=== PATIENT | female | born 1940 | race Caucasian/White ===

== ENCOUNTER 2016-05-16 21:51 | Inpatient (IN) ==
[2016-05-16] MEDS ORDERED: DUONEB NEB STA (21:59)
[2016-05-16 22:17] LABS: ABG BASE EXCESS -5 (-2.0-2.0); ABG HCO3 18.1 (22.0-26.0); ABG PCO2 22.9 mmHg (35-45); ABG PH 7.504 (7.35-7.45); ABG TCO2 19 (22.0-28.0)
--- NOTE | 2016-05-16 22:25 | ED.PDOC ---
General ED Provider: Dr. PEPITO PERALTA Chief Complaint: Shortness of Air Stated Complaint: Patient is a 75 year old female who comes to the ER with shortness of breath for 2 days . Call the office and got a prescription for Augmentin and has taken a total of 2 dose but is not better. comes it feeling very ill short of breath and coughing. Time Seen by Physician: 22:00 Mode of Arrival: Wheelchair Information Source: Patient Exam Limitations: No limitations Primary Care Provider: KAMILA DOUGLAS Nursing and Triage Documentation Reviewed and Agree: Yes Respiratory Complaint Exam - Respiratory Complaint/Exam Onset/Duration: 2 days Symptoms Are: Still present Timing: Constant Initial Severity: Moderate Current Severity: Severe Location: Chest Character: Reports: Non-productive cough Aggravating: Reports: URI, Weather Alleviating: Reports: None Associated Signs and Symptoms: Reports: Dyspnea, Fever, Chills History of Healthcare-Acquired Pneumonia: No Related Surgical History: Reports: None Pulmonary Embolism Risk Factors: None Cardiac Risk Factors: Reports: Hypertension. Denies: Prior CT, CAD, Smoking, Elevated lipids, Diabetes, CHF, Family History Pseudomonas Risk Factors: Reports: None Tuberculosis Risk Factors: Reports: None Status Asthmaticus Risk Factors: Reports: None Home Oxygen Use: No Recent Stress Test: No Recent Echo/LV Function: No Current Antibiotic Use: Yes (Augmentin ) Current Asthma Medication Use: No Respiratory Distress: Severe Inadequate Respiratory Effort: No Dysphagia Present: No Stridor Present: No JVD Present: No Accessory Muscle Use: No Retractions: Not Present Diminished Breath Sounds: Yes (bilaterally ) Sinus Tenderness: None Grunting Respirations: No Kussmaul Respirations: No Differential Diagnoses: Asthma, CHF, Pneumonia, Bronchitis, URI, Influenza, Lower Resp. Infection Non-Traumatic Chest Pain Syncope: EKG Performed Review of Systems - Review Of Systems Constitutional: Reports: Chills, Diaphoresis, Fever, Loss of appetite Eyes: Reports: No symptoms Ears, Nose, Mouth, Throat: Reports: No symptoms Respiratory: Reports: Cough, Short of air Cardiac: Reports: No symptoms GI: Reports: No symptoms, Abdomen distended : Reports: No symptoms Musculoskeletal: Reports: No symptoms Skin: Reports: No symptoms Neurological: Reports: Anxiety All Other Systems: Reviewed and Negative Past Medical History - Past Medical History Endocrine: Reports: None Cardiovascular: Reports: Hypertension Respiratory: Reports: None Hematological: Reports: None Gastrointestinal: Reports: None Genitourinary: Reports: None Neuro/Psych: Reports: None Musculoskeletal: Reports: None Cancer: Reports: None Last Menstrual Period: UNKNOWN - Surgical History General Surgical History: Reports: None - Family History Family History: Reports: None - Social History Smoking Status: Former smoker Hx Substance Use: No Alcohol Screening: None - Immunizations Tetanus Shot up to Date: No Physical Exam - Physical Exam Appearance: Ill-appearing Ill-appearing: Severe Eyes: ZANE, EOMI, Conjunctiva clear Neck: Supple Respiratory: Breath sounds diminished Cardiovascular: Pulses normal, Tachycardia GI/: Soft, Nontender, No masses, Bowel sounds normal Musculoskeletal: ROM intact, No edema Skin: Warm, Dry, Normal color Neurological: Sensation intact, Motor intact Psychiatric: Anxious Interpretation - Radiology Interpretation Radiology Interpretation By: Radiologist Radiology Results: Negative Exam Interpreted: CXR - Assistant Maintenance Manager Rate: Tachy Rhythm: Sinus Ectopy: None - EKG Interpretation Time of EKG #1: 22:26 Rate: Tachy Rhythm: Sinus [place]: Left ST Segment: Normal Interpretation: Old anterior infact Re-Evaluation - Re-Evaluation Time of Re-Evaluation: 23:51 Status: Improved (feels better less short of breath ) Vital Signs Stable: Yes ( blood pressure 99/64) Pain Level: none Lungs: Other (moving air better) Skin: Warm and Dry Neuro: Alert and Oriented X3 Physician Notification - Case Discussed Physician Notified: Dr. Bob Time of Notification: 23:50 (ok to admit ) Critical Care Note - Critical Care Note Total Time (mins): 30 Comments: Partly Compensated Respiratory Alkalosis Course - Course Hematology/Chemistry: 05/16/16 22:00 05/16/16 22:00 Orders, Labs, Meds: Lab Review 05/16/16 05/16/16 05/16/16 21:59 22:00 23:10 WBC 13.82 H RBC 3.87 L Hgb 10.6 L Hct 32.5 L MCV 84.0 MCH 27.4 MCHC 32.6 RDW Coeff of Shahram 16.1 H Plt Count 457 H Immature Gran % (Auto) 0.7 Neut % (Auto) 62.4 Lymph % (Auto) 25.5 [place] % (Auto) 9.0 Eos % (Auto) 2.1 Baso % (Auto) 0.3 Immature Gran # (Auto) 0.1 Neut # 8.6 H Lymph # 3.5 H [place] # 1.2 Eos # 0.3 Baso # 0.0 D-Dimer 3.91 Puncture Site Lb O2 Saturation 96.0 ABG pH 7.504 H* ABG pCO2 22.9 L ABG pO2 89.0 ABG HCO3 18.1 L ABG Total CO2 19 L ABG Base Excess -5 L Dima Test + FiO2 % 21.0 Sodium 134 L Potassium 4.0 Chloride 100 Carbon Dioxide 16 L Anion Gap 22.0 BUN 21 H Creatinine 1.30 Estimated GFR (MDRD) 40.00 BUN/Creatinine Ratio 16.15 Glucose 236 H Calcium 9.7 Total Bilirubin 0.23 AST 45 H ALT 37 Alkaline Phosphatase 76 Total Creatine Kinase 69 Troponin I 0.3900 B-Natriuretic Peptide 754 H Total Protein 7.0 Albumin 3.1 L Globulin 3.9 Albumin/Globulin Ratio 0.79 Influenza A (Rapid) Negative Influenza B (Rapid) Negative Orders Category Date Time Status ADMIT PATIENT INPATIENT .TO SCU (MONITORED BED) ADMISSION 05/16/16 23:38 Ordered ABG DRAW REQUEST Stat CARDIO 05/16/16 22:00 Completed ECHOCARDIOGRAM 2D-M MODE Routine CARDIO 05/16/16 23:38 Ordered EKG-(ED ONLY) Stat CARDIO 05/16/16 21:59 Completed NEBULIZER TREATMENT Routine CARDIO 05/16/16 23:43 Ordered NEBULIZER TREATMENT Stat CARDIO 05/16/16 22:00 Completed OXYGEN Routine CARDIO 05/16/16 23:38 Ordered ACTIVITY .Up ad Sunshine CARE 05/16/16 23:40 Ordered INTAKE & OUTPUT Q8HR CARE 05/16/16 23:38 Ordered TELEMETRY MONITORING TELE CARE 05/16/16 23:40 Ordered VITAL SIGNS Q4HR CARE 05/16/16 23:40 Ordered REGULAR DIET DIETARY 05/16/16 Breakfast Ordered ED APPLY O2 .ONCE EMERGENCY 05/16/16 21:59 Active ED PRINT PROJECT MANAGER APPLIED .ONCE EMERGENCY 05/16/16 21:59 Active ED IV/MEDIPORT/POWERPORT .ONCE EMERGENCY 05/16/16 21:59 Active ABG Stat LAB 05/16/16 21:59 Completed B-TYPE NATRIURETIC PEPTIDE Stat LAB 05/16/16 22:00 Completed BASIC METABOLIC PANEL DAILY@0600 LAB 05/17/16 06:00 Ordered BASIC METABOLIC PANEL DAILY@0600 LAB 05/18/16 06:00 Ordered BASIC METABOLIC PANEL DAILY@0600 LAB 05/19/16 06:00 Ordered BASIC METABOLIC PANEL DAILY@0600 LAB 05/20/16 06:00 Ordered BASIC METABOLIC PANEL DAILY@0600 LAB 05/21/16 06:00 Ordered BASIC METABOLIC PANEL DAILY@0600 LAB 05/22/16 06:00 Ordered BASIC METABOLIC PANEL DAILY@0600 LAB 05/23/16 06:00 Ordered BASIC METABOLIC PANEL DAILY@0600 LAB 05/24/16 06:00 Ordered BASIC METABOLIC PANEL DAILY@0600 LAB 05/25/16 06:00 Ordered BASIC METABOLIC PANEL DAILY@0600 LAB 05/26/16 06:00 Ordered BASIC METABOLIC PANEL DAILY@0600 LAB 05/27/16 06:00 Ordered BASIC METABOLIC PANEL DAILY@0600 LAB 05/28/16 06:00 Ordered BASIC METABOLIC PANEL DAILY@0600 LAB 05/29/16 06:00 Ordered BASIC METABOLIC PANEL DAILY@0600 LAB 05/30/16 06:00 Ordered BASIC METABOLIC PANEL DAILY@0600 LAB 05/31/16 06:00 Ordered BASIC METABOLIC PANEL DAILY@0600 LAB 06/01/16 06:00 Ordered BASIC METABOLIC PANEL DAILY@0600 LAB 06/02/16 06:00 Ordered BASIC METABOLIC PANEL DAILY@0600 LAB 06/03/16 06:00 Ordered BASIC METABOLIC PANEL DAILY@0600 LAB 06/04/16 06:00 Ordered BASIC METABOLIC PANEL DAILY@0600 LAB 06/05/16 06:00 Ordered BLOOD CULTURE Stat LAB 05/16/16 22:20 Received CBC W/ AUTO DIFF DAILY@0600 LAB 05/17/16 06:00 Ordered CBC W/ AUTO DIFF DAILY@0600 LAB 05/18/16 06:00 Ordered CBC W/ AUTO DIFF DAILY@0600 LAB 05/19/16 06:00 Ordered CBC W/ AUTO DIFF DAILY@0600 LAB 05/20/16 06:00 Ordered CBC W/ AUTO DIFF DAILY@0600 LAB 05/21/16 06:00 Ordered CBC W/ AUTO DIFF DAILY@0600 LAB 05/22/16 06:00 Ordered CBC W/ AUTO DIFF DAILY@0600 LAB 05/23/16 06:00 Ordered CBC W/ AUTO DIFF DAILY@0600 LAB 05/24/16 06:00 Ordered CBC W/ AUTO DIFF DAILY@0600 LAB 05/25/16 06:00 Ordered CBC W/ AUTO DIFF DAILY@0600 LAB 05/26/16 06:00 Ordered CBC W/ AUTO DIFF DAILY@0600 LAB 05/27/16 06:00 Ordered CBC W/ AUTO DIFF DAILY@0600 LAB 05/28/16 06:00 Ordered CBC W/ AUTO DIFF DAILY@0600 LAB 05/29/16 06:00 Ordered CBC W/ AUTO DIFF DAILY@0600 LAB 05/30/16 06:00 Ordered CBC W/ AUTO DIFF DAILY@0600 LAB 05/31/16 06:00 Ordered CBC W/ AUTO DIFF DAILY@0600 LAB 06/01/16 06:00 Ordered CBC W/ AUTO DIFF DAILY@0600 LAB 06/02/16 06:00 Ordered CBC W/ AUTO DIFF DAILY@0600 LAB 06/03/16 06:00 Ordered CBC W/ AUTO DIFF DAILY@0600 LAB 06/04/16 06:00 Ordered CBC W/ AUTO DIFF DAILY@0600 LAB 06/05/16 06:00 Ordered CBC W/ AUTO DIFF Stat LAB 05/16/16 22:00 Completed COMPREHENSIVE METABOLIC PANEL Stat LAB 05/16/16 22:00 Completed CREATINE KINASE Q8H LAB 05/17/16 05:45 Ordered CREATINE KINASE Q8H LAB 05/17/16 13:45 Ordered CREATINE KINASE Stat LAB 05/16/16 22:00 Completed D-DIMER Stat LAB 05/16/16 22:00 Received FLU A & B RAPID TEST [RAPID FLU A/B] Stat LAB 05/16/16 23:10 Completed MOLECULAR GROUP A STREP Stat LAB 05/16/16 23:10 Results STREP SCREEN Stat LAB 05/16/16 23:32 Uncollected TROPONIN I Q8H LAB 05/17/16 05:45 Ordered TROPONIN I Q8H LAB 05/17/16 13:45 Ordered TROPONIN I Stat LAB 05/16/16 22:00 Completed 0.9 % Sodium Chloride [Saline Flush] MEDS 05/16/16 21:59 Ordered 1 syr IVF PRN PRN Acetaminophen [Tylenol] MEDS 05/16/16 23:38 Ordered 650 mg PO Q4H PRN Azithromycin Inj [Zithromax] 500 mg MEDS 05/16/16 22:48 Active 0.9 % Sodium Chloride [Sodium Chloride] 250 ml IV ONCE Ceftriaxone Sodium [Rocephin] 1 gm MEDS 05/16/16 23:45 Ordered 0.9 % Sodium Chloride [Sodium Chloride] 50 ml IV DAILY Enoxaparin Sodium [Lovenox] MEDS 05/17/16 09:00 Ordered 40 mg SUBCUT DAILY Ipratropium/Albuterol Neb [Duoneb] MEDS 05/16/16 21:59 Discontinued 1 vial NEB ONCE STA Ipratropium/Albuterol Neb [Duoneb] MEDS 05/16/16 23:38 Ordered 1 vial NEB RTQ2H PRN Ipratropium/Albuterol Neb [Duoneb] MEDS 05/17/16 06:00 Ordered 1 vial NEB RTQID Methylprednisolone Sod Succ/Pf [Solu-Medrol 125 mg] MEDS 05/16/16 22:31 Discontinued 125 mg IVP ONCE STA Ondansetron HCl/Pf [Zofran 4 mg/2 ml] MEDS 05/16/16 23:38 Ordered 4 mg IVP Q6H PRN Sodium Chloride 0.9% [Sodium Chloride] 1,000 ml MEDS 05/16/16 23:45 Ordered IV 125 mls/hr Sodium Chloride 0.9% [Sodium Chloride] 1,000 ml MEDS 05/16/16 22:29 Active IV BOLUS RESUSCITATION STATUS Routine OTHERS 05/16/16 23:38 Ordered CHEST, 1V AP ONLY Stat RADS 05/16/16 21:59 Completed Medications Generic Name Dose Route Start Last Admin Trade Name Freq PRN Reason Stop Dose Admin Acetaminophen 650 mg 05/16/16 23:38 Tylenol PO Q4H PRN Fever >101 Albuterol/Ipratropium 1 vial 05/17/16 06:00 Duoneb NEB RTQID REGINA Albuterol/Ipratropium 1 vial 05/16/16 23:38 Duoneb NEB RTQ2H PRN Wheezing Azithromycin 250 mg 05/17/16 09:00 Zithromax PO DAILY REGINA Enoxaparin Sodium 40 mg 05/17/16 09:00 Lovenox SUBCUT DAILY REGINA Sodium Chloride 1,000 mls @ 125 mls/hr 05/16/16 22:29 05/16/16 22:31 Sodium Chloride IV 05/17/16 06:28 125 mls/hr BOLUS STA Administration Azithromycin 500 mg/ Sodium 250 mls @ 125 mls/hr 05/16/16 22:48 05/16/16 23: 25 Chloride IV 05/17/16 00:47 125 mls/hr ONCE STA Administration Ceftriaxone Sodium 1 gm/ 50 mls @ 75 mls/hr 05/16/16 23:45 Sodium Chloride IV DAILY REGINA Sodium Chloride 1,000 mls @ 125 mls/hr 05/16/16 23:45 Sodium Chloride IV .Q8H REGINA Ondansetron HCl 4 mg 05/16/16 23:38 Zofran 4 Mg/2 Ml IVP Q6H PRN Nausea / Vomiting Sodium Chloride 1 syr 05/16/16 21:59 05/16/16 22:40 Saline Flush IVF 1 syr PRN PRN Administration To flush IV Discontinued Medications Generic Name Dose Route Start Last Admin Trade Name Freq PRN Reason Stop Dose Admin Albuterol/Ipratropium 1 vial 05/16/16 21:59 05/16/16 22:26 Duoneb NEB 05/16/16 22:00 1 vial ONCE STA Administration Methylprednisolone Sodium Succinate 125 mg 05/16/16 22:31 05/16/16 22:38 Solu-Medrol 125 Mg IVP 05/16/16 22:32 125 mg ONCE STA Administration Vital Signs: Temp Pulse Resp BP Pulse Ox 05/16/16 21:52 97.2 F L 116 H 32 H 78/48 L 84 L Departure - Departure Time of Disposition: 23:55 Disposition: ADMITTED INPATIENT Discharge Problem: Acute bronchitis Qualifiers: Bronchitis organism: other organism Qualifier Code: (J20.8) Acute bronchitis due to other specified organisms Condition: Fair Pt referred to PMD for follow-up: No (Admitted ) Allergies/Adverse Reactions: Allergies No Known Drug Allergies Adverse Reaction (Verified 05/16/16 22:07) Home Medications: Ambulatory Orders Amoxicillin/Potassium Clav [Augmentin 875-125 mg Tab] 1 tab PO Q12HR 05/16/16 Losartan/Hydrochlorothiazide [Losartan-Hctz 100-25 mg Tab] 1 tab PO DAILY
[2016-05-16 22:26] VITALS: BMI 30.2
[2016-05-16 22:27] LABS: BASOPHILS % (AUTO) 0.3 % (0.0-3.0); EOSINOPHILS # (AUTO) 0.3 K/ul (0.0-0.7); EOSINOPHILS % (AUTO) 2.1 % (0.0-7.0); HEMATOCRIT 32.5 % (37.0-47.0); HEMOGLOBIN 10.6 g/dl (12.0-16.0); IMMATURE GRANULOCYTE % (AUTO) 0.7 % (0.0-5.0); LYMPHOCYTES # (AUTO) 3.5 K/uL (0.60-3.4); LYMPHOCYTES % (AUTO) 25.5 (10.0-50.0); MEAN CORPUSCULAR HEMOGLOBIN 27.4 pg (27.0-31.0); MEAN CORPUSCULAR HGB CONC 32.6 (31.8-35.4); MONOCYTES # (AUTO) 1.2 K/uL (0.4-2.0); NEUTROPHILS # (AUTO) 8.6 K/ul (2.0-6.9); NEUTROPHILS % (AUTO) 62.4; PLATELET COUNT 457 10^3/uL (140-440); RED BLOOD COUNT 3.87 10^6/ul (4.20-5.40); WHITE BLOOD COUNT 13.82 K/ul (4.6-10.2)
[2016-05-16] MEDS ORDERED: SODIUM CHLORIDE 1,000 ML IV STA (22:29)
--- NOTE | 2016-05-16 22:29 | DI ---
EXAM: Chest, single view, 05/16/2016 HISTORY: Shortness of a air COMPARISON: 10/29/2014 FINDINGS / IMPRESSION: Cardiomediastinal contours appear stable. Small hiatal hernia. Elevation o f the right diaphragm. There is no focal pulmonary consolidation. No pleural effusion or pneumothorax..
[2016-05-16] MEDS ORDERED: SOLU-MEDROL 125 MG IVP STA (22:31)
[2016-05-16 22:48] LABS: ALBUMIN 3.1 g/dL (3.4-5.0); ALBUMIN/GLOBULIN RATIO 0.79; BILIRUBIN,TOTAL 0.23 mg/dL (0.00-1.20); BUN/CREATININE RATIO 16.15; CALCIUM 9.7 mg/dL (8.2-10.2); CREATININE 1.3 mg/dL (0.60-1.30); TROPONIN I 0.39 ng/ml (0.0000-0.4000)
[2016-05-16] MEDS ORDERED: ZITHROMAX 500 MG in SODIUM CHLORIDE 250 ML IV STA (22:48)
[2016-05-16 23:29] LABS: FLU INTERNAL QC INTERNAL QC VALID; RAPID FLU A NEGATIVE (NEGATIVE); RAPID FLU B NEGATIVE (NEGATIVE)
[2016-05-16] MEDS ORDERED: TYLENOL PO PRN (23:38)
[2016-05-16] MEDS ORDERED: ZOFRAN 4 MG/2 ML IVP PRN (23:38)
[2016-05-16] MEDS ORDERED: DUONEB NEB PRN (23:38)
[2016-05-16] MEDS ORDERED: ROCEPHIN 1 GM in SODIUM CHLORIDE 50 ML IV SCH (23:45)
[2016-05-16] MEDS ORDERED: SODIUM CHLORIDE 1,000 ML IV SCH (23:45)
[2016-05-17] MEDS ORDERED: SODIUM CHLORIDE 500 ML IV STA (00:55)
[2016-05-17] MEDS ORDERED: ATIVAN PO PRN (00:58)
[2016-05-17] MEDS ORDERED: ROCEPHIN ONE (02:07)
[2016-05-17] MEDS ORDERED: SOLU-MEDROL 125 MG IVP SCH (05:00)
[2016-05-17] MEDS ORDERED: DUONEB NEB SCH (06:00)
[2016-05-17 06:18] VITALS: TEMP 96.8
[2016-05-17 06:25] LABS: BASOPHILS % (AUTO) 0.2 % (0.0-3.0); EOSINOPHILS % (AUTO) 0.1 % (0.0-7.0); HEMATOCRIT 33.3 % (37.0-47.0); HEMOGLOBIN 10.5 g/dl (12.0-16.0); IMMATURE GRANULOCYTE % (AUTO) 1.4 % (0.0-5.0); LYMPHOCYTES # (AUTO) 1.2 K/uL (0.60-3.4); MEAN CORPUSCULAR HEMOGLOBIN 26.9 pg (27.0-31.0); MEAN CORPUSCULAR HGB CONC 31.5 (31.8-35.4); MEAN CORPUSCULAR VOLUME 85.4 fl (81.0-99.0); MONOCYTES # (AUTO) 0.4 K/uL (0.4-2.0); MONOCYTES % (AUTO) 2.9 (0-10); NEUTROPHILS # (AUTO) 10.6 K/ul (2.0-6.9); NEUTROPHILS % (AUTO) 85.4; PLATELET COUNT 370 10^3/uL (140-440); WHITE BLOOD COUNT 12.39 K/ul (4.6-10.2)
[2016-05-17 06:40] LABS: ANION GAP 21.6; BUN/CREATININE RATIO 15.46; CREATININE 1.81 mg/dL (0.60-1.30); POTASSIUM 4.6 mmol/L (3.5-5.10)
[2016-05-17 06:49] LABS: TROPONIN I 0.376 ng/ml (0.0000-0.4000)
[2016-05-17] MEDS ORDERED: SUBLIMAZE IVP STA (08:55)
[2016-05-17] MEDS ORDERED: VERSED IVP STA (08:55)
[2016-05-17] MEDS ORDERED: ANECTINE IVP STA (08:56)
[2016-05-17] MEDS ORDERED: DIPRIVAN 20 ML VIAL IVP STA (08:56)
[2016-05-17] MEDS ORDERED: LOVENOX SUBCUT SCH ×2 (09:00)
[2016-05-17] MEDS: PHENYLEPHRINE IVP STA ×2 (09:08→12:35)
[2016-05-17] MEDS ORDERED: DOPAMINE 400 MG in PREMIX 250 ML D5W 1 BAG IV SCH (09:10)
[2016-05-17] MEDS ORDERED: PHENYLEPHRINE IVP STA ×2 (09:10→10:26)
[2016-05-17] MEDS: PHENYLEPHRINE IVP ONE ×2 (09:10→12:36)
[2016-05-17] MEDS ORDERED: NORCURON IVP STA (09:25)
[2016-05-17] MEDS ORDERED: DIPRIVAN 100 ML VIAL 1,000 MG in PREMIX INFUSION 100 ML VIAL 1 VIAL IV SCH (09:30)
[2016-05-17 09:39] LABS: TROPONIN I 0.359 ng/ml (0.0000-0.4000)
[2016-05-17 09:39] LABS: ABG BASE EXCESS -16 (-2.0-2.0); ABG HCO3 12 (22.0-26.0); ABG PH 7.25 (7.35-7.45); ABG TCO2 38 (22.0-28.0)
--- NOTE | 2016-05-17 09:49 | DI ---
EXAM: Chest one view, frontal view only. HISTORY: Hypoxia. COMPARISON: 1 day prior. FINDINGS: Endotracheal tube tip is approximately 2.8 cm above the abelrado. Heart size is at the upp er limits of normal. Atherosclerotic calcifications present. The lungs are clear save for calcifie d granulomatous changes. No pleural effusion or pneumothorax identified. Osseous structures are in tact. IMPRESSION: 1. Endotracheal tube tip above the abelardo. 2. No acute cardiopulmonary process.
[2016-05-17 10:26] LABS: CREATINE KINASE MB 14.2 ng/ml (0.0-3.6)
[2016-05-17 13:27] VITALS: BP 88/51
--- NOTE | 2016-05-17 13:59 | ED.PDOC ---
Procedures - IV/Art Line Insertion Location: wristl Type of Line: Peripheral IV Invasive Line/IV Catheter Gauge: 22 Number of Attempts: 1 Blood Return Positive: Yes Invasive Line/IV Flushes Without Difficulty: Yes Conscious Sedation - Pre-op Assessment Weight: 155 lb Surgical History: NONE - Medical History Past Medical History: Hypertension Other History: NONE - Physical Exam Heart Rate/Rhythm: Tachycardia
--- NOTE | 2016-05-17 13:59 | ED.PDOC ---
Procedures - Intubation Medications: Yes: Norcuron, Succinylcholine, Versed, Propofol, Other (fentanyl) Type of Tube Used: Endotracheal Tube Size: 7.5 Cricoid Pressure Used: No Tube Bazzi Used: Yes Position of Tube at Lip: 21 Number of Attempts: 1 Suction Used: No Glidescope Used: No CO2 Detector Used: Yes Lung Sounds Equal Bilaterally: Yes Intubation Complications: Present: No complications Tube Inserted By: Emory Mendiola CRNA Conscious Sedation - Pre-op Assessment Weight: 155 lb Surgical History: NONE - Medical History Past Medical History: Hypertension Other History: NONE - Physical Exam Heart Rate/Rhythm: Tachycardia
[2016-05-17] MEDS ORDERED: ZITHROMAX PO SCH (21:00)
[2016-05-17] MEDS ORDERED: ROCEPHIN 1 GM in SODIUM CHLORIDE 100 ML IV SCH (21:00)
== END 2016-05-17 09:50 | disposition short-term general hospital (02) | DRG 189 ==
LOC: ED 21:51 → SCU 23:39
PROVIDERS: ADMIT Family Medicine; ATTEND Family Medicine
PROC: 0CHY7BZ Insertion of Airway into Mouth and Throat, Via Natural or Artificial Opening (ICD-10-PCS; principal; 2016-05-17)
DX: J96.00 Acute respiratory failure, unspecified whether with hypoxia or hypercapnia (principal); A41.9 Sepsis, unspecified organism; R65.21 Severe sepsis with septic shock; N17.9 Acute kidney failure, unspecified; E87.3 Alkalosis; I95.9 Hypotension, unspecified; I10 Essential (primary) hypertension; J20.8 Acute bronchitis due to other specified organisms
CPT/HCPCS: 36415; 80048; 80053; 82550; 82553; 82803; 83874; 83880; 84484; 85025; 85379; 87040; 87651; 87804; 87880; 93005; 93010; 94640; 96361; 96365; 96375; 99284

== ENCOUNTER 2016-05-17 09:55 | Outpatient (CLI) ==
[2016-05-16 22:26] VITALS: BMI 30.2
== END 2016-05-17 09:56 ==
LOC: AMBL 09:55
PROVIDERS: ATTEND Emergency Medicine
DX: R06.00 Dyspnea, unspecified (principal); I95.9 Hypotension, unspecified